=== PATIENT | female | born 1970 | race Caucasian/White ===

== ENCOUNTER → 2023-08-22 06:33 | Day surgery (SDC) | payer OTHER, SELFPAY | LOC: GI 06:33 | PROVIDERS: ATTENDING PHYSICIAN Specialist | DX: Z12.11 Encounter for screening for malignant neoplasm of colon (principal); D12.3 Benign neoplasm of transverse colon; D12.4 Benign neoplasm of descending colon; K57.30 Diverticulosis of large intestine without perforation or abscess without bleeding; Z86.010 Personal history of colon polyps | CPT/HCPCS: 45385; 88305 ==

== ENCOUNTER → 2023-11-14 07:44 | Outpatient (REF) | payer OTHER, SELFPAY | LOC: WDC 07:44 | PROVIDERS: ATTENDING PHYSICIAN Obstetrics & Gynecology Gynecology | DX: Z12.31 Encounter for screening mammogram for malignant neoplasm of breast (principal) | CPT/HCPCS: 77063; 77067 ==

== ENCOUNTER → 2024-02-27 07:08 | Outpatient (REF) | payer OTHER, SELFPAY | LOC: PAVMRI 07:08 | PROVIDERS: ATTENDING PHYSICIAN Podiatrist Foot & Ankle Surgery; FAMILY PHYSICIAN Obstetrics & Gynecology Gynecology | DX: M84.375D Stress fracture, left foot, subsequent encounter for fracture with routine healing (principal) | CPT/HCPCS: 73721 ==

== ENCOUNTER 2024-04-21 08:02 | Outpatient (RCR) | payer OTHER, SELFPAY | END 2024-04-21 23:59 | disposition home or self-care (01) | LOC: RPT 08:02 | PROVIDERS: ATTENDING PHYSICIAN Podiatrist Foot & Ankle Surgery; FAMILY PHYSICIAN Obstetrics & Gynecology Gynecology | DX: M25.572 Pain in left ankle and joints of left foot (principal); M25.571 Pain in right ankle and joints of right foot; Z73.6 Limitation of activities due to disability; M72.2 Plantar fascial fibromatosis | CPT/HCPCS: 97110; 97140; 97162 ==

== ENCOUNTER 2024-05-17 06:35 | Outpatient (RCR) | payer OTHER, SELFPAY | END 2024-05-17 23:59 | disposition home or self-care (01) | LOC: RPT 06:35 | PROVIDERS: ATTENDING PHYSICIAN Podiatrist Foot & Ankle Surgery; FAMILY PHYSICIAN Obstetrics & Gynecology Gynecology | DX: M25.572 Pain in left ankle and joints of left foot (principal); M25.571 Pain in right ankle and joints of right foot; Z73.6 Limitation of activities due to disability; M72.2 Plantar fascial fibromatosis | CPT/HCPCS: 97110; 97112; 97140; 97760 ==

== ENCOUNTER 2024-06-04 09:08 | Outpatient (RCR) | payer OTHER, SELFPAY | END 2024-06-04 23:59 | disposition home or self-care (01) | LOC: RPT 09:08 | PROVIDERS: ATTENDING PHYSICIAN Podiatrist Foot & Ankle Surgery; FAMILY PHYSICIAN Obstetrics & Gynecology Gynecology | DX: M25.572 Pain in left ankle and joints of left foot (principal); M25.571 Pain in right ankle and joints of right foot; Z73.6 Limitation of activities due to disability; M72.2 Plantar fascial fibromatosis | CPT/HCPCS: 97110; 97140 ==

== ENCOUNTER → 2024-11-18 19:22 | Outpatient (REF) | payer OTHER, SELFPAY | LOC: WDC 19:22 | PROVIDERS: ATTENDING PHYSICIAN Obstetrics & Gynecology Gynecology; FAMILY PHYSICIAN Physician Assistant Medical | DX: Z12.31 Encounter for screening mammogram for malignant neoplasm of breast (principal) | CPT/HCPCS: 77063; 77067 ==

== ENCOUNTER → 2025-03-01 07:41 | Outpatient (REF) | payer OTHER, SELFPAY | LOC: HWRAD 07:41 | PROVIDERS: ATTENDING PHYSICIAN Nurse Practitioner Family; FAMILY PHYSICIAN Physician Assistant Medical | DX: R51.9 Headache, unspecified (principal) | CPT/HCPCS: 70486 ==